=== PATIENT | male | born 1965 | race Caucasian/White ===

== ENCOUNTER → 2018-02-06 | Outpatient (CLI) | payer BC ==
[2015-05-27 12:12] VITALS: BP 122/65
--- NOTE | 2018-02-06 11:22 | MRI ---
HISTORY: Benign paroxysmal vertigo, blurred vision and memory loss Study: MRI brain with and without contrast Comparison: 02/01/2016 Technique: Multisequence, multiplanar imaging of the brain was performed without the administration of IV contra st. Findings: Imaging of the brain demonstrates the midline structures to be intact. There is no intracranial hemor rhage, mass effect, or midline shift. Diffusion-weighted images demonstrate no restricted diffusion t o suggest acute or early subacute infarct. The ventricular system is nondilated. No extra-axial fluid collection is identified there are multiple T2/FLAIR hyperintense foci scattered within the perivent ricular, deep, and subcortical white matter, findings which are nonspecific but can be seen in the se tting of chronic small vessel disease if the patient has the appropriate clinical risk factors for lee ch. The basilar cisterns are patent. The bilateral cerebellopontine angles are unremarkable. IMPRESSION: 1. Scattered white matter T2/FLAIR hyperintense foci, findings which are nonspecific but can be seen in the setting of chronic small vessel disease if the patient has the appropriate clinical risk facto rs for such. Otherwise, unremarkable MRI of the brain without contrast. Reported By:
== END ==
LOC: RAD 09:17
PROVIDERS: ATTEND Internal Medicine
DX: H81.13 Benign paroxysmal vertigo, bilateral (principal); R51 Headache
CPT/HCPCS: 70551

== ENCOUNTER → 2018-02-12 | Outpatient (CLI) | payer BC ==
[2015-05-27 12:12] VITALS: BP 122/65
--- NOTE | 2018-02-12 17:27 | MRI ---
HISTORY: Vertigo. Family history of intracranial aneurysms Study: MRA of the head without contrast Comparison: Recent MRI of the brain from 02/06/2018 Technique: 3-D [id number] imaging of the intracranial circulation was performed. Findings: The anterior circulation demonstrates normal anatomic findings. The internal carotid artery, M1 segm ent, and A1 segments do not demonstrates atherosclerotic changes. No aneurysmal changes or evidence for vascular malformation can be identified. The posterior circulation demonstrates a posterior comm unicating artery on the right and left. 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 The left vertebral and basilar system is normal in its appearance. IMPRESSION: 1. 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 Remainder the intracranial MRA is unremarkable. Specifically, no evidence of intracranial aneurysm is seen on this exam. Reported By:
== END ==
LOC: RAD 15:22
PROVIDERS: ATTEND Internal Medicine
DX: R51 Headache (principal); H81.13 Benign paroxysmal vertigo, bilateral; G43.C1 Periodic headache syndromes in child or adult, intractable
CPT/HCPCS: 70544